=== PATIENT | female | born 1990 | race African-American/Black ===

== ENCOUNTER 2016-12-15 17:23 | Emergency (ER) | payer OTHER ==
[~2016-12-15] VITALS: Ht 175.3 cm; Wt 89.9 kg
[~2016-12-15 17:23] MED LIST: BACTERICIN30 GM TP; BACTRIM,SEPT1 TABLET PO; MOTRIN600 MG PO; POLYTRIM EYE DR10 ML BOTH EYES; PRENATABS RX T1 EACH PO
[2016-12-15 18:04] LABS: HEMATOCRIT 31.5 % (36.0-46.0); MCH 25.7 PG (29.0-34.0); MCHC 31.7 G/DL (30.0-36.0); MEAN PLAT.VOLUME 9.3 uM^3 (9.5-12.4); PLATELET COUNT 339 K/uL (156-360); RBC DIS.WIDTH-CV 14.9 % (11.8-14.6); RBC DIS.WIDTH-SD 42.5 % (39-53); RED BLOOD COUNT 3.89 M/uL (3.80-5.20); WHITE BLOOD COUNT 6.9 K/uL (4.1-10.2)
[2016-12-15 18:14] LABS: ADD MIUA? YES; BILIRUBIN NEGATIVE; BLOOD NEGATIVE; COLOR AMBER ((YELLOW)); GLUCOSE (STRIP) NEGATIVE; KETONES 20; LEUKOCYTES TRACE; NITRITE POSITIVE; PROTEIN (STRIP) 30; SPECIFIC GRAVITY 1.031 (1.000-1.030)
[2016-12-15 18:18] LABS: CHLORIDE 106 mEq/L (99-109); POTASSIUM 3.7 mEq/L (3.7-5.4); SODIUM 138 mEq/L (136-147)
[2016-12-15 18:20] LABS: GLUCOSE 87 mg/dL (70-99)
[2016-12-15 18:21] LABS: ANION GAP 8 MEQ/L (2-14)
[2016-12-15 18:22] LABS: TOTAL BILIRUBIN 0.2 mg/dL (0.0-1.0)
[2016-12-15 18:24] LABS: ALKALINE PHOSPHATASE 75 IU/L (3-129); GFR ESTIMATE (CALCULATED) > 59 mL/min/
[2016-12-15 18:25] LABS: UREA NITROGEN (BUN) 11 mg/dL (9-23)
[2016-12-15 18:31] LABS: BACTERIA 3+ /HPF; EPITHELIAL CELLS 1+ /HPF; MUCUS 4+ /LPF; RED BLOOD CELLS NONE SEEN /HPF (0-5); UCUL ADDED? NO; WHITE BLOOD CELLS NONE SEEN /HPF (0-5)
[2016-12-15 18:33] LABS: QUANTITATIVE HCG 4113.7 MIU/ML
[2016-12-15] MEDS ORDERED: PRENATAL ONE T1 EACH PO (19:34)
[2016-12-15] MEDS ORDERED: ZOFRAN4 MG PO (19:34)
[2016-12-15] MEDS ORDERED: KEFLEX500 MG PO (19:34)
[2016-12-15 19:53] VITALS: BP 126/62
== END 2016-12-15 19:55 | disposition home or self-care (01) ==
LOC: EME 17:23
DX: O23.41 Unspecified infection of urinary tract in pregnancy, first trimester (principal); O26.891 Other specified pregnancy related conditions, first trimester; R10.10 Upper abdominal pain, unspecified; Z3A.00 Weeks of gestation of pregnancy not specified
CPT/HCPCS: 80053; 81003; 84702; 85027; 99281; 99284